=== PATIENT | female | born 1990 | race Two or more races ===

== ENCOUNTER 2020-11-01 14:21 | Emergency (ER) | payer SELFPAY ==
[~2020-11-01] VITALS: Ht 154.9 cm; Wt 70.0 kg
[2020-11-01 14:45] VITALS: BP 129/75
[2020-11-01] MEDS ORDERED: HYDR25TA PO (15:04)
--- NOTE | 2020-11-01 15:05 | PHYS DOC ---
General Adult HPI: HPI: Patient is a 30 year old female who presents with for the last couple of weeks she has felt very anxious, having insomnia, seems like she cannot turn off her brain at night, feeling like she cannot control herself and at times she will get tingling in her fingers, lips and in her feet. She states she does not th ink that she has been stressed but she has been feeling just very anxious about something but she is does not know why. She is vaccinated for Covid. She has no other past medical history. She denies SI or HI. She denies any abuse or feeling unsafe. Patient denies any headache, dizziness, syncope, chest pain, shortness of air, abdominal pain, nausea, vomiting, diarrhea, fever, cough. She denies any current pain. (MIKE SOSA APRN) Review of Systems: Review of Systems: Constitutional: Denies fever or chills. [] Eyes: Denies change in visual acuity. [] HENT: Denies nasal congestion or sore throat. [] Respiratory: Denies cough or shortness of breath. [] Cardiovascular: Denies chest pain or edema. [] GI: Denies abdominal pain, nausea, vomiting, bloody stools or diarrhea. [] : Denies dysuria. [] Musculoskeletal: Denies back pain or joint pain. [] Integument: Denies rash. [] Neurologic: Denies headache, focal weakness or sensory changes. + Intermittent tingling in hands, feet and lips [] Endocrine: Denies polyuria or polydipsia. [] Lymphatic: Denies swollen glands. [] Psychiatric: Denies depression or +anxiety. + Insomnia [] (MIKE SOSA VENDING ATTENDANT) Heart Score: C/O Chest Pain: No Risk Factors: Risk Factors: DM, Current or recent (<one month) smoker, HTN, HLP, family history of CAD, obesity. Risk Scores: Score 0 - 3: 2.5% MACE over next 6 weeks - Discharge Home Score 4 - 6: 20.3% MACE over next 6 weeks - Admit for Clinical Observation Score 7 - 10: 72.7% MACE over next 6 weeks - Early Invasive Strategies (MIKE SOSA APRN) Physical Exam: PE: Constitutional: Well developed, well nourished, no acute distress, non-toxic appearance. [] HENT: Normocephalic, atraumatic, bilateral external ears normal, oropharynx moist, no oral exudates, nose normal. [] Eyes: PERRLA, EOMI, conjunctiva normal, no discharge. [] Neck: Normal range of motion, no tenderness, supple, no stridor. [] Cardiovascular:Heart rate regular rhythm, no murmur [] Lungs & Thorax: Bilateral breath sounds clear to auscultation [] Abdomen: Bowel sounds normal, soft, no tenderness, no masses, no pulsatile masses. [] Skin: Warm, dry, no erythema, no rash. [] Back: No tenderness, no CVA tenderness. [] Extremities: No tenderness, no cyanosis, no clubbing, ROM intact, no edema. [] Neurologic: Alert and oriented X 3, normal motor function, normal sensory function, no focal deficits noted. [] Psychologic: Affect normal, judgement normal, mood normal. [] Normal physical exam (MIKE SOSA APRN) Current Patient Data: Vital Signs: Vital Signs Date Time Temp Pulse Resp B/P (MAP) Pulse Ox O2 Delivery O2 Flow Rate FiO2 11/01/20 14:45 98.7 72 16 129/75 (93) 100 Room Air 98.7 (NAVI CORRALES DO) EKG: EKG: [] (MIKE SOSA APRN) Radiology/Procedures: Radiology/Procedures: [] (MIKE SOSA APRN) Course & Med Decision Making: Course & Med Decision Making Pertinent Labs and Imaging studies reviewed. (See chart for details) See HPI. Alert and oriented x4. Ambulatory steady gait. Skin pink warm and dry. Vital signs within normal limits. Speaks in full clear sentences. Lungs are clear to all station all lobes. Patient will be given information for [facility] health and primary care clinics. I will give her hydroxyzine to take at home. [] (MIKE SOSA APRN) Course & Med Decision Making I have reviewed and was available for consultation in the emergency department for this patient that was seen by midlevel provider. Agree with plan. Navi Corrales DO (NAVI CORRALES DO) Arina Disclaimer: Arina Disclaimer: This electronic medical record was generated, in whole or in part, using a voice recognition dictation system. (MIKE SOSA APRN) Departure Departure Impression: Primary Impression: Anxiety Additional Impression: Insomnia Qualified Codes: G47.00 - Insomnia, unspecified Disposition: 01 HOME / SELF CARE / HOMELESS Condition: STABLE Patient Instructions: Anxiety and Panic Attacks, Insomnia Additional Instructions: Follow-up with primary care provider or the [facility]. Drink plenty of fluids. Take medication as prescribed. Remember the medication will make you sleepy so do not drive or work while taking the medication. Scripts Hydroxyzine Hcl (HYDROXYZINE HCL) 25 Mg Tablet 1 TAB PO TID, #30 TAB Prov: MIKE SOSA APRN 11/01/20 MIKE SOSA APRN Nov 01, 2020 15:05 NAVI CORRALES DO Nov 02, 2020 06:11
== END 2020-11-01 15:22 | disposition home or self-care (01) ==
LOC: ER 14:21
DX: F41.9 Anxiety disorder, unspecified (principal); G47.00 Insomnia, unspecified
CPT/HCPCS: 81025; 99283